=== PATIENT | male | born 1995 | race Caucasian/White ===

== ENCOUNTER 2017-06-02 17:37 | Emergency (ER) | payer OTHER ==
[2017-06-02 19:37] LABS: BASO % 0.3 % (0.0-1.0); EOS # 0.1 10^3/uL (0.0-0.50); EOS % 0.6 % (0.0-3.0); HEMATOCRIT 40.8 % (42.0-52.0); HEMOGLOBIN 13.7 g/dl (14.0-18.0); IMMATURE GRANULOCYTE % 0.4 % (0-3.0); LYMPH # 1.7 10^3/uL (1.5-6.5); MEAN CORPUSCULAR HGB CONC 33.6 g/dl (32.0-36.5); MEAN CORPUSCULAR VOLUME 89.5 fl (80.0-96.0); MONO # 0.9 10^3/uL (0.0-0.8); MONO % 5.9 % (0.0-5.0); NEUTROPHILS % 81.8 % (36.0-66.0); PLATELET COUNT, AUTOMATED 295 10^3/uL (150-450); RED BLOOD COUNT 4.56 10^6/uL (4.30-6.10); RED CELL DISTRIBUTION WIDTH 13.2 % (11.5-14.5); WHITE BLOOD COUNT 15.9 10^3/uL (4.0-10.0)
[2017-06-02 19:47] LABS: LACTIC ACID SEPSIS PROTOCOL 0.6 MMOL/L (0.4-2.0)
[2017-06-02 19:48] LABS: ANION GAP 7 MEQ/L (8-16); BLOOD UREA NITROGEN 20 MG/DL (7-18); CALCIUM LEVEL 9.3 MG/DL (8.5-10.1); CARBON DIOXIDE LEVEL 27 MEQ/L (21-32); CHLORIDE LEVEL 105 MEQ/L (98-107); CREATININE FOR GFR 1.63 MG/DL (0.70-1.30); GLUCOSE, FASTING 87 MG/DL (70-100); POTASSIUM SERUM 4.2 MEQ/L (3.5-5.1); SODIUM LEVEL 139 MEQ/L (136-145)
[2017-06-02] MEDS ORDERED: CEFTAROLINE FOSAMIL 600 MG in D5W MINI-BAG PLUS 50 ML IV (20:00)
[2017-06-02 20:13] LABS: ERYTHROCYTE SEDIMENTATION RATE 21 mm/hr (0-15)
[2017-06-02] MEDS: CLINDAMYCIN 600 MG in APPROPRIATE DILUENT 1 EA IV (20:30)
== END 2017-06-02 22:06 | disposition home or self-care (01) ==
LOC: M ED 17:37
DX: L03.116 Cellulitis of left lower limb (principal)
CPT/HCPCS: 73590